=== PATIENT | male | born 1995 | race African-American/Black ===

== ENCOUNTER 2023-07-04 06:29 | Emergency (ER) | payer MEDICAID ==
[~2023-07-04] VITALS: Ht 177.8 cm; Wt 64.8 kg
[2023-07-04 06:31] VITALS: PULSE 60
[2023-07-04 06:37] VITALS: BP 121/76; RESP 16; TEMP 98.8; O2SAT 100
== END 2023-07-04 08:39 | disposition left against medical advice (07) ==
LOC: ER 06:29
DX: K08.89 Other specified disorders of teeth and supporting structures (principal); Z53.21 Procedure and treatment not carried out due to patient leaving prior to being seen by health care provider